=== PATIENT | male | born 1940 | race Caucasian/White ===

== ENCOUNTER 2018-02-19 11:58 | Emergency (ER) | payer OTHER ==
[~2018-02-19] VITALS: Ht 170.2 cm; Wt 131.6 kg
[~2018-02-19 11:58] MED LIST: ACCUPRIL40 MG PO; ACID REDUCER150 MG PO; ACTOPLUS MET1 TABLE1 PO; ACTOS15 MG PO; ALFUZOSIN HCL10 MG; ALFUZOSIN HCL10 MG PO; ALLEGRA ALLERG180 MG PO; AMLODIPINE BES2.5 MG PO; ASTELIN137 MCG/0.; ATORVASTATIN CA10 MG PO; Ambien PO; Ascorbic Acid,Ester- PO; Aspirin Chewable PO; BYSTOLIC10 MG; BYSTOLIC10 MG PO; Bystolic PO; CELEXA20 MG PO; CHOLESTYRAMINE378 GM; CIPRO500 MG PO; CITALOPRAM HBR20 MG; CITALOPRAM HBR20 MG PO; COLACE100 MG PO; CRESTOR40 MG; CRESTOR40 MG PO; Cepacol Lozenge, Sor MM; Claritin,Alavart PO; Coumadin,Jantoven PO; Dulcolax PO; FEXOFENADINE H180 MG; FUROSEMIDE20 MG; FUROSEMIDE80 MG PO; Flomax PO; Folvite PO; GLIMEPIRIDE1 MG PO; Glucophage PO; HEARTBURN RELI150 M1 PO; IPRATROPIUM BRO15 ML BOTH NARES; IRON PO; KEFLEX500 MG PO; LASIX20 MG PO; LEVOTHYROXINE100 MCG PO; LEVOXYL50 MCG; LEVOXYL75 MCG PO; LO-DOSE ASPIRIN81 M2 PO; LOSARTAN POTAS100 MG PO; Lasix PO; Levothroid,Synthroid PO; METFORMIN HCL850 MG PO; MONOPRIL20 MG PO; Miralax, Glycolax PO; Oscal 500 w/Vitamin PO; PIOGLITAZONE HC45 MG PO; Pepcid PO; Protonix PO; QUESTRAN POWDE378 GM PO; QUINAPRIL HCL40 MG; Questran PO; RANITIDINE HCL150 MG; ST. JOSEPH ASPI81 MG PO; Senokot S,Pericolace PO; TYLENOL REGULA325 MG PO; Theragran PO; Tylenol/Codeine #3 PO; VICTOZA0.6 MG/0.1; VICTOZA0.6 MG/0.1 SC; VITAMIN D2000 UNI1 PO; Victoza SC; celeXA PO
[2018-02-19] MEDS ORDERED: NAPROSYN500 MG PO (14:40)
[2018-02-19 14:51] VITALS: BP 129/66
== END 2018-02-19 14:52 | disposition home or self-care (01) ==
LOC: EME 11:58
DX: I80.01 Phlebitis and thrombophlebitis of superficial vessels of right lower extremity (principal); I73.9 Peripheral vascular disease, unspecified; R60.0 Localized edema; Z79.82 Long term (current) use of aspirin; Z79.84 Long term (current) use of oral hypoglycemic drugs; Z87.891 Personal history of nicotine dependence
CPT/HCPCS: 93971; 99281; 99283